=== PATIENT | female | born 1930 | race Caucasian/White ===

== ENCOUNTER 2017-02-10 00:25 | Inpatient (IN) | payer MEDICARE ==
[~2017-02-10] VITALS: Ht 167.6 cm; Wt 58.5 kg
[2017-02-10] VITALS (10 sets, daily range): BP systolic 118–140; BP diastolic 55–84
[~2017-02-10 00:25] MED LIST: ACID1TAB12 PO; BENEFIBER PO; CRAN250C PO; FERR325T28 PO; LACT-215 PO; LEVE250T2 PO; LEVO88TA5 PO; MULT-1168 PO; PANT40TA4 PO; PHEN100C4 PO; POTA-10 PO; PRED10TA PO; PROT1PAC2 PO
--- NOTE | 2017-02-10 00:45 | NUR ---
PT BIB RA WITH A C/O HEADACHE. PT HAS A BRUISE AND BUMP ON LEFT UPPER FOREHEAD. PT IS ABLE TO ANSWER ALL QUESTIONS. PT'S DAUGHTER IS AT THE BEDSIDE. PT APPEARS TO BE [place], BUT IS ABLE TO UNDERSTAND HER DAUGHTER. PT IS ON THE MONITOR AND CONTINUOUS PULSE OX.
[2017-02-10] MEDS ORDERED: IV NS 0.9% 1,000 ML BAG IV ONE (01:00)
[2017-02-10] MEDS ORDERED: METOCLOPRAMIDE HCL 10 MG/2 ML VIAL IV ONE (01:00)
[2017-02-10] MEDS ORDERED: METOCLOPRAMIDE HCL 10 MG/2 ML VIAL ONE (01:26)
[2017-02-10] MEDS ORDERED: IV SET PRIMARY 1 EA INFUS.SET MC ONE (01:27)
[2017-02-10] MEDS ORDERED: IV NS 0.9% 1,000 ML ONE (01:27)
--- NOTE | 2017-02-10 01:27 | NUR ---
LAB DRAW AT THE BEDSIDE IN PROGRESS.
--- NOTE | 2017-02-10 01:28 | NUR ---
PT'S DAUGHTER STATED THAT HER MOTHER HAS PMR AND IT IS PROBABLY WHY SHE IS HAVING THE RT GROIN PAIN.
--- NOTE | 2017-02-10 01:35 | NUR ---
PT LEFT FOR CT VIA GURNEY.
[2017-02-10 01:38] LABS: BASOPHILS # (AUTO) 0.1 /CMM (0.0-0.2); BASOPHILS % (AUTO) 0.3 % (0.0-2.0); EOSINOPHILS # (AUTO) 0.1 /CMM (0.0-0.7); EOSINOPHILS % (AUTO) 0.4 % (0.0-6.0); HEMATOCRIT 39 % (33-45); LYMPHOCYTES # (AUTO) 0.8 /CMM (0.8-4.8); LYMPHOCYTES % (AUTO) 5.1 % (20.0-44.0); MEAN CORPUSCULAR HEMOGLOBIN 30 PG (26.0-33.0); MEAN CORPUSCULAR HGB CONC 34 g/dl (31.0-36.0); MEAN CORPUSCULAR VOLUME 90 fL (82-100); MONOCYTES # (AUTO) 1.2 /CMM (0.1-1.30); MONOCYTES % (AUTO) 7.7 % (2.0-12.0); NEUTROPHILS # (AUTO) 14.1 /CMM (1.8-8.9); NEUTROPHILS % (AUTO) 86.5 % (43.0-81.0); PLATELET COUNT (AUTO) 272 /CMM (150-450); RDW COEFFICIENT OF VARIATION 12.6 (11.5-15.0); WHITE BLOOD COUNT (AUTO) 16.3 K/uL (4.3-11.0)
[2017-02-10 01:50] LABS: CALCIUM, SERUM 9.4 mg/dL (8.5-10.1); CREATININE 0.9 mg/dL (0.6-1.3); POTASSIUM 3.3 mmol/L (3.5-5.1)
[2017-02-10 01:54] LABS: INR 0.93 (0.87-1.13); PROTHROMBIN TIME 9.9 SECS (9.5-12.7)
[2017-02-10 01:57] LABS: ALBUMIN 3.7 g/dL (3.4-5.0); BILIRUBIN,DIRECT 0.1 mg/dL (0.0-0.2); BILIRUBIN,TOTAL 0.3 mg/dL (0.2-1.0); TOTAL PROTEIN, SERUM 6.7 g/dL (6.4-8.2)
[2017-02-10 01:58] LABS: TROPONIN I 0.031 ng/mL (0.00-0.056)
--- NOTE | 2017-02-10 01:58 | NUR ---
PT RETURNED FROM CT.
--- NOTE | 2017-02-10 02:00 | NUR ---
DR. [place] WRIGHT IS AT THE BEDSIDE FOR MID LINE INSERTION.
--- NOTE | 2017-02-10 02:17 | NUR ---
PT PLACED ON A BEDPAN. LARGE BM NOTED.
--- NOTE | 2017-02-10 02:20 | NUR ---
IN AND OUT CATH DONE. URINE SAMPLE OBATINED. LAB CALLED FOR P/U.
[2017-02-10] MEDS ORDERED: ASPI81TA2 PO (02:38)
[2017-02-10] MEDS ORDERED: LAMO100T PO (02:38)
[2017-02-10] MEDS ORDERED: FURO-145 PO (02:38)
[2017-02-10] MEDS ORDERED: SACC250C6 PO (02:38)
[2017-02-10] MEDS ORDERED: VERA40TA5 PO (02:38)
[2017-02-10] MEDS ORDERED: CHOL100062 PO (02:38)
[2017-02-10] MEDS ORDERED: CHOL100044 PO (02:38)
--- NOTE | 2017-02-10 02:38 | NUR ---
DR. KAMRYN WRIGHT IS ADMITTING THE PT.
--- NOTE | 2017-02-10 02:43 | NUR ---
CALLING REPORT TO TELE NURSE.
--- NOTE | 2017-02-10 02:51 | NUR ---
REPORT GIVEN TO PAWEL STRAUSS/CHG.
[2017-02-10 02:52] LABS: APPEARANCE,URINE CLEAR (CLEAR); BILIRUBIN,URINE NEGATIVE (NEGATIVE); BLOOD, URINE TRACE Ery/uL (NEGATIVE); COLOR,URINE YELLOW (YELLOW); KETONES,URINE NEGATIVE (NEGATIVE); LEUKOCYTE ESTERASE ,URINE NEGATIVE (NEGATIVE); NITRITE, URINE NEGATIVE (NEGATIVE); PROTEIN,URINE NEGATIVE (NEGATIVE); UGLUCOSE NEGATIVE (NEGATIVE); UROBILINOGEN,URINE 0.2 EU/dL (0.2)
[2017-02-10] MEDS ORDERED: ONDANSETRON HCL/PF 4 MG/2 ML VIAL IVP PRN (03:00)
[2017-02-10 03:02] LABS: ADD URINE CULTURE NO; BACTERIA,URINE None seen /HPF (None Seen); RBC,URINE 0-3 /HPF (0-2); SQUAMOUS EPITHELIAL CELL,UR Rare /HPF (None Seen); WBC,URINE 0-2 /HPF (0-3)
--- NOTE | 2017-02-10 03:30 | NUR ---
AVID EDITOR NOTES ADMITTED FROM ER THIS 86 Y.O. FEMALE ACCOMPANIED BY FAMILY MEMBERS WITH CHIEF COMPLAINTS OF FALL AT HOME,DIAGNOSIS OF SEIZURE.ALERT,ORIENTED X3-4.UNDERSTAND [place],WITH [place] ON BOTH EARS.NOTED BRUISING ON BOTH ARMS,WITH RIGHT UPPER MIDLINE INTACT AND PATENT.NS FROM ER TO CONSUME.NOTED TREMORS ON BOTH HANDS.WITH KNOWN HX OF SEIZURE ACTIVITY.SKIN INTACT.PITTING EDEMA ON BILATERAL FOOT.CALL LIGHT IN REACH,NEEDS ANTICIPATED.
--- NOTE | 2017-02-10 04:00 | NUR ---
CCO NOTES FAMILY WANTS PATIENT TO START WITH FOX VELARDE,CLAIMED SHE MISSED THE DOSE LAST NIGHT.KAMRYN WRIGHT DNP MADE AWARE,WITH ORDER TO OK TO GIVE EARLY 0900 DOSE.
[2017-02-10] MEDS ORDERED: LEVETIRACETAM (250 MG) 250 MG TABLET PO ONE ×2 (04:05→22:43)
[2017-02-10] MEDS ORDERED: POTASSIUM CHLORIDE 20 MEQ TAB.PRT.SR PO ONE (04:06)
[2017-02-10] MEDS ORDERED: LamoTRIgine 100 MG TABLET ONE (04:07)
[2017-02-10] MEDS ORDERED: LamoTRIgine 25 MG TABLET ONE (04:07)
[2017-02-10] MEDS ORDERED: ACETAMINOPHEN 325 MG TABLET ONE (04:11)
--- NOTE | 2017-02-10 04:16 | NUR ---
BUSINESS MANAGEMENT SPECIALIST NOTES STARTED ON LAMICTAL 125MG PO PER FAMILY REQUEST,ALONG WITH KEPPRA 1250MG PO AT 0417.
[2017-02-10] MEDS: LEVETIRACETAM (250 MG) 250 MG TABLET PO SCH ×2 (04:17→17:00)
[2017-02-10] MEDS ORDERED: IV SET PRIMARY PUMP SET 1 EA INFUS.SET MC ONE (04:18)
[2017-02-10] MEDS: ACETAMINOPHEN 325 MG TABLET PO PRN ×4 (04:18→22:52)
--- NOTE | 2017-02-10 04:18 | NUR ---
STRATEGIC PLANNING SPECIALIST NOTES C/O HEADACHE,MEDICATED WITH TYLENOL 650MG PO,TAKEN WELL AND PER PATIENT REQUEST.WILL MONITOR FOR RELIEF
[2017-02-10] MEDS: VERAPAMIL HCL 80 MG TABLET PO SCH ×3 (05:00→22:52)
--- NOTE | 2017-02-10 05:03 | NUR ---
PENCIL MAKER NOTES ALSO MEDICATED WITH K-DUR 20MEQ PO FOR POTASSIUM LEVEL OF 3.3.
[2017-02-10] MEDS ORDERED: VERAPAMIL HCL 80 MG TABLET ONE (06:00)
--- NOTE | 2017-02-10 06:09 | NUR ---
TRUCK ENGINE TECHNICIAN NOTES PT'S DAUGHTER REFUSED TO HAVE PT WAKEN UP FOR BLOOD PRESSURE CHECK. EXPLAINED TO DAUGHTER THAT HER VERAPAMIL HCL 40MG IS DUE. DAUGHTER REFUSED FOR HER TO BE TAKEN AT THIS TIME.
--- NOTE | 2017-02-10 07:02 | NUR ---
PATENT ATTORNEY CLOSING NOTES: PATIENT IN BED ASLEEP. PT A/OX3-4. FAMILY MEMBER AT BEDSIDE. PT ON ROOM AIR. TELE READING SINUS RHYTHM AT 76. BEDPAN WAS 300ML THIS MORNING. PATIENT KEPT CLEAN, DRY, AND COMFORTABLE. PATIENT HAS MIDLINE IV ON R AC AND IS PATENT AND INTACT. BED IN LOCKED, LOWEST POSITION, AND SIDE RAILS X2. WILL ENDORSE TO DAY SHIFT NURSE.
--- NOTE | 2017-02-10 08:00 | NUR ---
PT'S DAUGHTER AT THE BEDSIDE. SHE DID NOT WANT TO WAKE UP HER MOTHER. REFUSED TO DRAW BLOOD AND TAKE VS.
[2017-02-10] MEDS ORDERED: FUROSEMIDE 20 MG TABLET PO SCH (09:00)
[2017-02-10] MEDS ORDERED: POTASSIUM CHLORIDE 20 MEQ TAB.PRT.SR PO SCH (09:00)
[2017-02-10] MEDS: BENEFIBER 4 GM 1 EA PACKET PO SCH ×3 (09:00→17:22)
[2017-02-10] MEDS: CHOLECALCIFEROL 1,000 UNIT TABLET (VIT D3) PO SCH (09:00)
[2017-02-10] MEDS ORDERED: LamoTRIgine 100 MG TABLET PO SCH (09:00)
[2017-02-10] MEDS ORDERED: LamoTRIgine 25 MG TABLET PO SCH ×2 (09:30→22:00)
[2017-02-10] MEDS: IV D5/ 0.9% NACL 1,000 ML IV PRN (09:53)
[2017-02-10] MEDS: ASPIRIN 81 MG TAB.CHEW PO SCH (10:00)
[2017-02-10] MEDS: POTASSIUM CHLORIDE 20 MEQ TAB.PRT.SR PO SCH ×3 (10:00→12:00)
[2017-02-10] MEDS: LEVOTHYROXINE SODIUM 88 MCG TABLET PO SCH (10:00)
[2017-02-10] MEDS: PANTOPRAZOLE 40 MG TABLET.DR PO SCH (10:00)
--- NOTE | 2017-02-10 11:30 | NUR ---
PT'S DAUGHTER STILL REFUSED TO DRAW BLOOD AND TAKE K-DUR. NOTIFIED TO DR. CARDOZA.
--- NOTE | 2017-02-10 17:00 | NUR ---
ORTHOSTATIC BP 16:45 LYING 131/64 HR 57 16:50 SITTING 133/61 HR 60 16:55 STANDING 128/78 HR 74
--- NOTE | 2017-02-10 17:41 | NUR ---
PT. WANTS TO TAKE 5PM & 6PM MEDS AT 10PM TONIGHT. WILL GIVE INFORM TO SAUSAGE WRAPPER.
[2017-02-10] MEDS ORDERED: FERROUS SULFATE (325 MG) 325 MG/TAB TABLET PO SCH (18:00)
[2017-02-10] MEDS ORDERED: PHENYTOIN EXTENDED RELEASE 100 MG CAPSULE PO SCH (18:00)
[2017-02-10] MEDS ORDERED: predniSONE 1 MG TABLET PO SCH (18:00)
--- NOTE | 2017-02-10 18:34 | NUR ---
CLOSING NOTE PT. AWAKE, ALERT AND ORIENTED X3. COMPLAINTS OF HEADACHE. PT TOOK AN TYLENOL PO. SR ON THE MONITOR. EEG DONE AT THE BEDSIDE. VS STABLE. FAMILY AT THE BEDSIDE. SIDE RAILS UP. SEIZURE PRECAUTION. CALL LIGHT WITHIN REACH. MONITOR CLOSELY.
--- NOTE | 2017-02-10 19:30 | NUR ---
BREAKER LAYER NOTE PATIENT IN BED ALERT AND ORIENTED. DAUGHTER AT BEDSIDE. NO RESPIRATORY DISTRESS OR SOB NOTED. NO S/S OF SEIZURE. SEIZURE PRECAUTIONS IN PLACE AT ALL TIMES. BED LOCKED AND IN LOWEST POSITION. SIDE RAILS UP, CALL LIGHT WITHIN REACH. WILL CONTINUE TO MONITOR.
--- NOTE | 2017-02-10 22:00 | NUR ---
PLATE STRAIGHTENER NOTE PATIENT AND DAUGHTER REQUESTING ONE TIME DOSE OF KEPPRA 1,250MG BECAUSE SHE MISSED A DOSE YESTERDAY. NOTIFIED SUPRIYA VELEZ. ORDER RECEIVED AND CARRIED OUT.
[2017-02-10] MEDS ORDERED: LEVETIRACETAM (250 MG) 250 MG TABLET PO SCH (22:30)
--- NOTE | 2017-02-11 04:00 | NUR ---
TRUCK SALES MANAGER NOTE REFUSED 0400 VITALS. WILL TRY AGAIN LATER.
[2017-02-11] MEDS: IV D5/ 0.9% NACL 1,000 ML IV PRN (05:42)
--- NOTE | 2017-02-11 06:06 | NUR ---
DAIRY SCIENCE TEACHER NOTE PATIENT REFUSING VERAPAMIL AT THIS TIME. WOULD LIKE ALL OF HER MORNING MEDICATION TOGETHER AT 1000. KEPT PATIENT CLEAN DRY AND COMFORTABLE. ALL NEEDS MET AND ATTENDED TO. WILL ENDORSE TO DAY SHIFT FOR CAMILA.
[2017-02-11] MEDS: ACETAMINOPHEN 325 MG TABLET PO PRN ×2 (06:17→07:44)
[2017-02-11 06:28] VITALS: BP 141/59
--- NOTE | 2017-02-11 07:30 | NUR ---
MS NURSE OPENING NOTES RECEIVED REPORT FROM NIGHT NURSE. PATIENT RESTING IN BED, SIDE RAILS UP X2, NO SIGNS OF DISTRESS.
[2017-02-11 08:00] VITALS: BP 139/52
--- NOTE | 2017-02-11 08:27 | NUR ---
MS NURSES NOTES PT COMPLAINED OF HEADACHE 01/02. GAVE PT TYLENOL 650 MG.
[2017-02-11] MEDS ORDERED: LEVETIRACETAM (250 MG) 250 MG TABLET PO SCH (09:00)
[2017-02-11] MEDS: LEVOTHYROXINE SODIUM 88 MCG TABLET PO SCH (09:10)
[2017-02-11] MEDS: PANTOPRAZOLE 40 MG TABLET.DR PO SCH (09:10)
[2017-02-11] MEDS: ASPIRIN 81 MG TAB.CHEW PO SCH (09:12)
[2017-02-11] MEDS: CHOLECALCIFEROL 1,000 UNIT TABLET (VIT D3) PO SCH (09:12)
[2017-02-11] MEDS: VERAPAMIL HCL 80 MG TABLET PO SCH ×2 (09:14→12:26)
[2017-02-11] MEDS: BENEFIBER 4 GM 1 EA PACKET PO SCH ×2 (09:34→12:26)
[2017-02-11] MEDS ORDERED: LamoTRIgine 25 MG TABLET PO SCH (10:00)
[2017-02-11 16:14] VITALS: BP 139/52
--- NOTE | 2017-02-11 17:42 | NUR ---
MS DISCHARGE NOTE PT WAS DISCHARGED TODAY WITH DISCHARGE INSTRUCTIONS GIVEN. PATIENT'S VS WAS STABLE AND HAD NO SOB. Addendum: 02/11/17 at 2041 by KVNG MORENO RN DISCHARGE NOTE SHOULD HAVE TIME OF 1455.
== END 2017-02-11 14:55 | disposition home or self-care (01) | DRG 101 ==
LOC: ER 00:27 → TELE 02:42 → MED 02-11 08:14
PROVIDERS: ADMIT Nurse Practitioner Acute Care; ATTEND Nurse Practitioner Acute Care
PROC: 05H533Z Insertion of Infusion Device into Right Subclavian Vein, Percutaneous Approach (ICD-10-PCS; principal; 2017-02-10)
PROC: B546ZZA Ultrasonography of Right Subclavian Vein, Guidance (ICD-10-PCS; 2017-02-10)
DX: G40.909 Epilepsy, unspecified, not intractable, without status epilepticus (principal); E87.1 Hypo-osmolality and hyponatremia; I10 Essential (primary) hypertension; S00.83XA Contusion of other part of head, initial encounter; W19.XXXA Unspecified fall, initial encounter; Y93.9 Activity, unspecified; Y92.009 Unspecified place in unspecified non-institutional (private) residence as the place of occurrence of the external cause; E86.0 Dehydration; D50.9 Iron deficiency anemia, unspecified; E03.9 Hypothyroidism, unspecified; G25.0 Essential tremor; D72.829 Elevated white blood cell count, unspecified; E55.9 Vitamin D deficiency, unspecified; R73.9 Hyperglycemia, unspecified; M50.30 Other cervical disc degeneration, unspecified cervical region; F03.90 Unspecified dementia, unspecified severity, without behavioral disturbance, psychotic disturbance, mood disturbance, and anxiety; R55 Syncope and collapse
CPT/HCPCS: 36415; 70450-TC; 71010-TC; 72125-TC; 73510-TC; 80048-TC; 80076-TC; 81000-TC; 82550-TC; 84484-TC; 85025-TC; 85730-TC; 87081-TC; 93307-TC; 93880-TC; 95819-TC; 97001-TC; A4606; J2765; J7030; J7042; L0172; Z7610